=== PATIENT | female | born 1940 | race Caucasian/White ===

== ENCOUNTER 2020-06-06 09:57 | Inpatient (IN) | payer OTHER ==
[~2020-06-06] VITALS: Ht 160 cm; Wt 43.8 kg
[2020-06-06] VITALS (10 sets, daily range): BP systolic 111–136; BP diastolic 57–77
--- NOTE | ~2020-06-06 | EMS ---
[address] [address] EMS Patient Care Report Name: BEE HARO Room #: 201-P [facility] IN M.R.#: [id number] Admission: 06/06/20 Attend Phys: Russ Anguiano MD Discharge: 06/08/20 Date of : 42 Report #: [id number] THIS REPORT FOR: //name// Report Transmitted: 06/26/2020 21:[address] [facility] MED-ACT Incident [id number] @ 06/06/2020 09:11 Incident Location [address] [place] [address] Patient BEE HARO Female, 80 Years 1940 Patient Address [address] [place] [address] Patient History Breast Cancer, Patient Allergies Ibuprofen, Patient Medications None Reported, Chief Complaint STEMI Disposition Transported No Lights/[place] Reason Falls Transported To [facility] Narrative History- Pt is found lying supine on the bed. She is alert and talking to FD. Pt states that her and her went for a 2 mile walk this morning and it was colder outside than she thought it was going to be. When they got back home she went to the kitchen to make a hot tea. Her was in the next room and [address] [address] EMS Patient Care Report Name: BEE HARO Room #: 201-P DIS IN M.R.#: [id number] Admission: 06/06/20 Attend Phys: Russ Anguiano MD Discharge: 06/08/20 Date of : 42 Report #: [id number] heard the pt fall. He immediately went in and by that time the pt was alert but asking repetitive questions. Her helped her to the bed and called 911. Pt's biggest complaint is bilateral wrist pain from the fall. Pt has some slight swelling to both wrist but no deformity. She also has a small abrasion on her left check. Pt denies any head, neck or back pain and pt request to be transported to [facility]. 12 lead is completed and flags a STEMI with slight elevation in II,II,aVF. It is discussed with the pt and her that due to what we see on the 12 lead it would be more appropriate to go to the closest hospital. Pt agrees. Pt denies any chest pain or shortness of breath. Treatment- Vitals. 12 lead. ASA. IV. 12 lead is transmitted to [place]. Pt is transported to [place] with 2 paramedics in the back. Serial 12 lead down with more pronounced ST elevation in II,III,aVF. Pt taken to room 12 and moved to the bed by sheet drag. Report given to RN and . Initial Vitals @09:28P: 62,VA Suspected: true @09:48MI Suspected: true @09:52P: 70,R: 12,BP: 136/61,GCS: 15,SpO2: 100,Revised Trauma: 12, @09:38P: 79,R: 12,BP: 120/78,Pain: 4/10,GCS: 15,SpO2: 99,Revised Trauma: 12, @PTAP: 82,R: 16,BP: 90/50,Pain: 4/10,GCS: 15,Glucose: 71,SpO2: 99,Revised Trauma: 12, Assessments @09:28MENTAL:Person Oriented,Time Oriented,Event Oriented,Place Oriented,SKIN:HEENT:Head/Face: ABR,Eyes: No Abnormalities,Neck/Airway: No Abnormalities,LUNG SOUNDS:General: No Abnormalities,ABDOMEN:General: No Abnormalities,PELVIS//GI:No Abnormalities,EXTREMITIES:Left Arm: Other,Right Arm: Other,Right Arm: WEST,Left Arm: WEST,Left Leg: No Abnormalities,Right Leg: No Abnormalities,PULSE:Radial: 2+ Normal,NEURO:No Abnormalities, Impression ST elevation (STEMI) myocardial infarction of inferior wall Procedures @09:4812-Lead ECGResponse: UnchangedSucceeded@09:2812-Lead ECGResponse: UnchangedSucceeded@09:38Normal Saline (.9% NaCl) 100cc (20 ga) Site: Antecubital-RightResponse: UnchangedSucceeded@09:30Aspirin - 324 Milligrams (mg) - OralResponse: Unchanged@09:30Surgical Mask on PatientResponse: Unchanged@09:30STEMI AlertResponse: Unchanged Timeline [employer] PROFESSOR,BP: 90/50 M,PULSE: 82,RR: 16 R,SPO2: 99 Ox,ETCO2: ,B,PAIN: 4,GCS: 15, 09:09,Call Received 09:09,Psap Call 09:11,Dispatched [address] [address] EMS Patient Care Report Name: BEE HARO Room #: 201-P [facility] IN M.R.#: [id number] Admission: 06/06/20 Attend Phys: Russ Anguiano MD Discharge: 06/08/20 Date of : 42 Report #: [id number] 09:11,En Route 09:21,On Scene 09:22,At Patient 09:28,12-Lead ECG,Response: UnchangedSucceeded, 09:28,BP: / M,PULSE: 62,RR: R,SPO2: Ox,ETCO2: ,BG: ,PAIN: ,GCS: , 09:30,Aspirin - 324 Milligrams (mg) - Oral,Response: Unchanged 09:30,STEMI Alert,Response: Unchanged 09:30,Surgical Mask on Patient,Response: Unchanged 09:38,Normal Saline (.9% NaCl) 100cc 20 ga Site: Antecubital-Right,Response: UnchangedSucceeded, 09:38,BP: 120/78 M,PULSE: 79,RR: 12 R,SPO2: 99 Ox,ETCO2: ,BG: ,PAIN: 4,GCS: 15, 09:41,Depart Scene 09:48,12-Lead ECG,Response: UnchangedSucceeded, 09:48,BP: / M,PULSE: ,RR: R,SPO2: Ox,ETCO2: ,BG: ,PAIN: ,GCS: , 09:52,BP: 136/61 M,PULSE: 70,RR: 12 R,SPO2: 100 Ox,ETCO2: ,BG: ,PAIN: ,GCS: 15, 09:55,At Destination 10:21,Call Closed Disclaimer v1.1 Copyright 2020 [employer] This EMS Care Summary contains data elements from the applicable legal record (which may be displayed differently). It is designed to provide pertinent information for the following purposes: continuity of care, clinical quality, and state data reporting. The complete legal record is available to ED staff and administrators of the receiving hospital in [employer]'s Patient Tracker. All data is provided "as is."
--- NOTE | ~2020-06-06 | EMS ---
[address] [address] EMS Patient Care Report Name: BEE HARO Room #: 170-12 ADM IN M.R.#: [id number] Admission: 06/06/20 Attend Phys: Russ Anguiano MD Discharge: Date of : 42 Report #: [id number] THIS REPORT FOR: //name// Report Transmitted: 06/06/2020 12:07 EMS Care Summary [facility] MED-ACT Incident [id number] @ 06/06/2020 09:11 Incident Location [address] [place] [address] Patient BEE HARO Female, 80 Years 1940 Patient Address [address] [place] [address] Patient History Breast Cancer, Patient Allergies Ibuprofen, Patient Medications None Reported, Chief Complaint STEMI Disposition Transported No Lights/[place] Dispatch Reason Falls Transported To [facility] Narrative History- Pt is found lying supine on the bed. She is alert and talking to FD. Pt states that her and her went for a 2 mile walk this morning and it was colder outside than she thought it was going to be. When they got back home she went to the kitchen to make a hot tea. Her was in the next room and [facility] [address] [place] [address] EMS Patient Care Report Name: BEE HARO Room #: 170-12 ADM IN M.R.#: [id number] Admission: 06/06/20 Attend Phys: Russ Anguiano MD Discharge: Date of : 42 Report #: [id number] heard the pt fall. He immediately went in and by that time the pt was alert but asking repetitive questions. Her helped her to the bed and called 911. Pt's biggest complaint is bilateral wrist pain from the fall. Pt has some slight swelling to both wrist but no deformity. She also has a small abrasion on her left check. Pt denies any head, neck or back pain and pt request to be transported to [facility]. 12 lead is completed and flags a STEMI with slight elevation in II,II,aVF. It is discussed with the pt and her that due to what we see on the 12 lead it would be more appropriate to go to the closest hospital. Pt agrees. Pt denies any chest pain or shortness of breath. Treatment- Vitals. 12 lead. ASA. IV. 12 lead is transmitted to [place]. Pt is transported to [place] with 2 paramedics in the back. Serial 12 lead down with more pronounced ST elevation in II,III,aVF. Pt taken to room 12 and moved to the bed by sheet drag. Report given to RN and . Initial Vitals @09:48MI Suspected: true @09:28P: 62,[place] Suspected: true @09:52P: 70,R: 12,BP: 136/61,GCS: 15,SpO2: 100,Revised Trauma: 12, @09:38P: 79,R: 12,BP: 120/78,Pain: 4/10,GCS: 15,SpO2: 99,Revised Trauma: 12, @PTAP: 82,R: 16,BP: 90/50,Pain: 4/10,GCS: 15,Glucose: 71,SpO2: 99,Revised Trauma: 12, Assessments @09:28MENTAL:Person Oriented,Time Oriented,Event Oriented,Place Oriented,SKIN:HEENT:Head/Face: ABR,Eyes: No Abnormalities,Neck/Airway: No Abnormalities,LUNG SOUNDS:General: No Abnormalities,ABDOMEN:General: No Abnormalities,PELVIS//GI:No Abnormalities,EXTREMITIES:Left Arm: Other,Right Arm: Other,Right Arm: WEST,Left Arm: WEST,Left Leg: No Abnormalities,Right Leg: No Abnormalities,PULSE:Radial: 2+ Normal,NEURO:No Abnormalities, Impression ST elevation (STEMI) myocardial infarction of inferior wall Procedures @09:4812-Lead ECGResponse: UnchangedSucceeded@09:2812-Lead ECGResponse: UnchangedSucceeded@09:38Normal Saline (.9% NaCl) 100cc (20 ga) Site: Antecubital-RightResponse: UnchangedSucceeded@09:30Aspirin - 324 Milligrams (mg) - OralResponse: Unchanged@09:30Surgical Mask on PatientResponse: Unchanged@09:30STEMI AlertResponse: Unchanged 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,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 M,PULSE: 82,RR: 16 R,SPO2: 99 Ox,ETCO2: ,B,PAIN: 4,GCS: 15, 09:09,Call Received 09:09,Psap Call 09:11,Dispatched [address] [address] EMS Patient Care Report Name: BEE HARO Room #: 170-12 ADM IN M.R.#: [id number] Admission: 06/06/20 Attend Phys: Russ Anguiano MD Discharge: Date of : 42 Report #: [id number] 09:11,En Route 09:21,On Scene 09:22,At Patient 09:28,12-Lead ECG,Response: UnchangedSucceeded, 09:28,BP: / M,PULSE: 62,RR: R,SPO2: Ox,ETCO2: ,BG: ,PAIN: ,GCS: , 09:30,Aspirin - 324 Milligrams (mg) - Oral,Response: Unchanged 09:30,STEMI Alert,Response: Unchanged 09:30,Surgical Mask on Patient,Response: Unchanged 09:38,Normal Saline (.9% NaCl) 100cc 20 ga Site: Antecubital-Right,Response: UnchangedSucceeded, 09:38,BP: 120/78 M,PULSE: 79,RR: 12 R,SPO2: 99 Ox,ETCO2: ,BG: ,PAIN: 4,GCS: 15, 09:41,Depart Scene 09:48,12-Lead ECG,Response: UnchangedSucceeded, 09:48,BP: / M,PULSE: ,RR: R,SPO2: Ox,ETCO2: ,BG: ,PAIN: ,GCS: , 09:52,BP: 136/61 M,PULSE: 70,RR: 12 R,SPO2: 100 Ox,ETCO2: ,BG: ,PAIN: ,GCS: 15, 09:55,At Destination 10:21,Call Closed Disclaimer v1.1 Copyright 2020 [employer] This EMS Care Summary contains data elements from the applicable legal record (which may be displayed differently). It is designed to provide pertinent information for the following purposes: continuity of care, clinical quality, and state data reporting. The complete legal record is available to ED staff and administrators of the receiving hospital in [employer]'s Patient Tracker. All data is provided "as is."
--- NOTE | ~2020-06-06 | HC ---
[facility] [place] [address] CONSULTATION Name: BEE HARO Room #: 170-12 ADM IN M.R.#: [id number] Admission: 06/06/20 Attend Phys: Russ Anguiano MD Discharge: Date of : 42 Report #: [id number] THIS REPORT FOR: cc: FAM - No family physician/PCP FAM - No family physician/PCP Jason Dominguez MD ~ CARDIOLOGY CONSULTATION INDICATION: Syncope. HISTORY OF PRESENT ILLNESS: This is a pleasant 80-year-old female with a history of hypothyroidism, breast cancer, presenting with an episode of syncope. She had just gone for her 2-mile walk outside with her . They walk routinely without any issues. This morning, it was cold outside and they walked faster than they normally would. They came home and she went into the kitchen to make tea. She apparently passed out, her heard her fall. When he went to see her, she was moaning and regained consciousness. She kept asking the same questions. The patient does not recall details leading to her syncopal event. She denies any chest pain or shortness of breath. On route to the hospital, an EKG performed by EMS revealed ST segment elevation in the inferior leads. In the ER, repeat ECG revealed no ST segment changes. There is no history of fever, chills, loss of appetite, or diarrhea. PAST MEDICAL HISTORY: Denies any history of hypertension or diabetes. History of breast cancer, thyroid disease. Also with low blood pressure. HOME MEDICATION: Includes Synthroid. ALLERGIES: IBUPROFEN. SOCIAL HISTORY: Denies tobacco use. FAMILY HISTORY: Denies any premature history of CAD. Lives with her . REVIEW OF SYSTEMS: A full 10-point review of systems performed. Only the pertinent positives and negatives are described in the HPI. PHYSICAL EXAMINATION: VITAL SIGNS: Blood pressure is 110/60. Heart rate is 80 beats per minute. GENERAL APPEARANCE: This is an elderly-appearing female, in no acute respiratory distress. HEENT: Normocephalic, atraumatic. Oral mucosa moist. NECK: Supple. LUNGS: Clear to auscultation. CARDIAC: Regular rate and rhythm. S1, S2 positive. [facility] [address] [address] CONSULTATION Name: BEE HARO Room #: 170-12 ADM IN .R.#: [id number] Admission: 06/06/20 Attend Phys: Russ Anguiano MD Discharge: Date of : 42 Report #: [id number] ABDOMEN: Soft, nontender. EXTREMITIES: No cyanosis. No edema. LABORATORY DATA: ECG done by EMS reveals sinus rhythm with ST segment elevation in the inferior leads. EKG #2 done in the ER reveals sinus rhythm, no acute changes. Laboratory values are pending. ASSESSMENT AND PLAN: 1. ECG abnormality, rule out acute coronary syndrome. We will need to rule out acute ST segment elevation that has normalized. May be related to occluded vessel with reperfusion. I discussed with the patient and her the risks, benefits, and alternatives of cardiac catheterization. They understand and wish to proceed. 2. Syncope, may be related to chronic low blood pressure and recent cardiac event. Another consideration may be vagally mediated. 3. Hypercholesterol, check lipid panel and treat accordingly. 4. Thyroid disease, continue with Synthroid. By: [id number] Jason Dominguez MD /nt
--- NOTE | 2020-06-06 10:18 | NUR ---
LEADERSHIP DEVELOPMENT MANAGER HERE TO GET CONSENTS. DR RICKS STATES NOT TO GIVE HEPARIN AT THIS TIME
[2020-06-06 10:22] LABS: HEMATOCRIT 36.9 % (37.0-47.0); HEMOGLOBIN 11.8 gm/dL (12.0-15.0); MCH 25.9 pg (26.0-34.0); MCHC 31.9 g/dL (28.0-37.0); MCV 81.1 fL (80.0-100.0); PLATELET COUNT 287 thou/uL (150-400); RBC 4.55 mil/uL (4.20-5.00); RDW 14.9 % (10.5-14.5); WBC 8.6 thou/uL (4.0-11.0)
--- NOTE | 2020-06-06 10:28 | NUR ---
INTERNATIONAL LOGISTICS MANAGER HERE TO TAKE PATIENT TO THE LAB
[2020-06-06 10:39] LABS: ANION GAP 9 mmol/L (7-16); BUN 14 mg/dL (7-18); CALCIUM 9.3 mg/dL (8.5-10.1); CHLORIDE 102 mmol/L (98-107); CO2 26 mmol/L (21-32); CREATININE 0.8 mg/dL (0.6-1.0); GLUCOSE 117 mg/dL (74-106); SODIUM 137 mmol/L (136-145)
[2020-06-06 10:48] LABS: TROPONIN-I <0.06 ng/mL (<0.06)
[2020-06-06 10:50] LABS: ABSOLUTE NEUTROPHILS 5.9 thou/uL (1.4-8.2); ATYPICAL LYMPHS 1 %; PLATELET ESTIMATE NORMAL
--- NOTE | 2020-06-06 12:38 | NUR ---
SUGARTONG SPLINT APPLIED TO LT ARM FOR FX. FINGERS PINK AND WARM, PT CAN MOVE. CAP REFILL <2 SEC.
--- NOTE | 2020-06-06 12:48 | CATHLAB ---
[facility] [place] [address] INVASIVE PROCEDURE REPORT Name: BEE HARO Room #: 170-12 ADM IN M.R.#: [id number] Admission: 06/06/20 Attend Phys: Russ Anguiano MD Discharge: Date of : 42 Report #: [id number] THIS REPORT FOR: cc: FAM - No family physician/PCP FAM - No family physician/PCP aJson Dominguez MD ~ APPROVED REPORT Study performed: 06/06/2020 10:35:55 Patient Details The patient is a 80 year-old female Event Personnel Jason Dominguez Try Out Person, Hannah Oden RN RN, Estelle Bearden RTR, KALEB Bryson, Georgi Szymanski RTR Monitor Procedures Performed Art Access - R femoral artery* Left Heart Cath w/or w/o Coronaries [id number] [facility] [address] Initial Mod Sed Same Phys/QHP Gr5y 070117 86376 Mod Sed Same Phys/QHP Ea 217192 Hemostasis w/ Mynx Indication Abnormal ECG, Syncope, The patient presented with an episode of syncope at home. ECG performed by EMS revealed ST elevation in the inferior leads. A second ECG performed in the ER revealed no ST segment changes. Risk Factors Hypercholesterolemia Procedure Narrative The Right Groin^ was infiltrated with 1% Lidocaine subcutaneous anesthesia. A PINNACLE 6FR Sheath #[id number] sheath was inserted into the RFA^. Coronary angiography was performed using coronary diagnostic catheters. The right coronary system was accessed and visualized with a JR4 catheter. The left coronary system was accessed and visualized with a JL4 catheter. The left ventricle was accessed and visualized with a PIGTAIL catheter. Left ventricular/Aortic Valve gradient assessed via catheter pullback. Left ventriculogram was performed in 30 degree projection. Pre-demployment femoral angiogram was performed . Closure device was deployed with a 6 Fr MYNXGRIP 6/7F #[id number]. Hemostasis was obtained with manual pressure following [facility] [place] [address] INVASIVE PROCEDURE REPORT Name: TAHIRBEE Room #: 170-12 [facility] IN ..#: [id number] Admission: 06/06/20 Attend Phys: Elia Monge Discharge: Date of : 42 Report #: [id number] sheath removal without any complications. The patient tolerated the procedure well and there were no complications associated with the procedure. There was no hematoma. Intraoperative Conscious Sedation Sedation start time: 1057 Case end Time: 1130 Fentanyl 50 mcg Versed 1 mg Fluoro Time: 3.20 minutes Dose: DAP 1498.00 cGycm2 402 mGy Contrast Type and Amount: Visipaque 105 ml Coronary Angiography The patient's coronary anatomy is right dominant. Diagnostic Cath Left Main Left main artery is a large-caliber vessel, with no flow-limiting lesions. LAD The LAD is a moderate-sized caliber vessel, traversing the anterior wall and wrapping around the apex. This vessel is patent with no flow-limiting lesions. Diagonal 1 This is a small to moderate-sized caliber vessel, patent with no flow-limiting lesions. Circumflex There is a mild stenosis in the proximal circumflex, 10%. OM1 This is a small to moderate-sized caliber vessel, patent with no flow-limiting lesions. Right Coronary The RCA is a dominant vessel with mild disease proximally. R PDA This is a small to moderate-sized caliber vessel, patent with no flow-limiting lesions. RPLV This is a small to moderate-sized caliber vessel, patent with no flow-limiting lesions. Left Ventriculography The left ventricle is normal in size with normal contractility. The left ventricular ejection fraction is estimated to be 55-60%. Hemodynamics The aortic pressure is 108/49 mmHg with a mean of 74 mmHg. The left ventricular pressure is 105/6 mmHg with a mean of mmHg. The left ventricular end diastolic pressure is 15 mmHg. Conclusion [facility] [address] [place] [address] INVASIVE PROCEDURE REPORT Name: BEE HARO Room #: [facility]12 [facility] IN .R.#: [id number] Admission: 06/06/20 Attend Phys: Elia Monge Discharge: Date of : 42 Report #: [id number] 1. 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 2. There is normal LV systolic function. 3. Recommend guideline directed medical therapy. <ELECTRONICALLY SIGNED> By: Jasno Dominguez MD 06/06/20 1248 47 Jason Dominguez MD /INF
--- NOTE | 2020-06-06 14:45 | NUR ---
13:45 ARRIVED FROM ATLASSIAN ADMINISTRATOR ON OUR UNIT. RIGHT GROIN SITE LOOKS CLEAN, DRY AND INTACT WITH NO OOZING OR BLEEDING FROM SITE AT ALL. PALPATION OF AREA IS SOFT TO TOUCH AND NO SIGN'S OF A HEMATOMA AT SITE. PEDALPULSES ARE STRONG BILATERALLY. DENIES ANY SOB, NO CHEST PAIN AT THIS TIME. ASKED ABOUT CLOTHING=WILL CALL ATLASSIAN ADMINISTRATOR AND ER TO LOCATE SUCH FROM LAST NIGHT. DR. GRADY IS COMING UP TO WRITE ORDERS SOON. ON VITAL SIGN MONITOR AND ALL WITHIN NORMAL LIMITS. AT BEDSIDE ASKING IF SHE WILL HAVE SURGERY FOR HER ARM SOON I TOLD HER THEY WOULD NEED TO EVALUATE HER/ORTHO AND MAKE THAT DECISION BUT FOR NOW THEY WILL FOCUS ON WHY SHE HAD A SYNCOPAL EPISODE.
--- NOTE | 2020-06-06 15:58 | EKG ---
[facility] [place] [address] ELECTROCARDIOGRAM REPORT Name: BEE HARO Room #: 201-P ADM IN M.R.#: [id number] Admission: 06/06/20 Attend Phys: Russ Anguiano MD Discharge: Date of : 42 Report #: [id number] THIS REPORT FOR: cc: RYAN - Nikki family physician/PCP RYAN - Nikki family physician/PCP Caleb Fox MD 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
--- NOTE | 2020-06-06 17:19 | NUR ---
PT. BACK FROM CT SCAN OF HEAD. IS OFF BEDREST NOW. BEDPAN PROVIDED URINE OUTPUT WAS 500ML, NO VOIDING DIFFICULTIES REPORTED. DENIES AND DISCOMFORT OTHER THEN HER LEFT ARM WITH MOVEMENT ONLY AT THIS TIME. RIGHT HAND IS PUFFY NEAR THE THUMB AREA SO WILL PASS THIS ALONG IT MAY ALSO NEED AN XRAY WELL AND AN ICE PACK. RIGHT GROIN IS C,D,I NO HEMATOMA, NO OOZING AT SITE.
--- NOTE | 2020-06-06 17:46 | NUR ---
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 THEY BROUGHT UP HER CLOTHES, SHOES AND CELL PHONE. DENIES AND SOB, NO CP.
[2020-06-06] MEDS ORDERED: SYNTHROID50 MCG (19:46)
[2020-06-07] VITALS (7 sets, daily range): BP systolic 108–128; BP diastolic 56–74
--- NOTE | 2020-06-07 03:00 | NUR ---
ASSESSMENTS CHARTED, MEDS CHARTED GIVEN. PATIENT RESTING IN BED DURING SHIFT. SHE CAME IN AFTER A SYNCOPAL EPISODE WHEN SHE FRACTURED HER RIGHT WRIST. CURRENTLY BEING WORKED UP FOR ORTHO SURGERY TO REPAIR DISPLACED ULNER STYLOID AND DISTAL RADIUS. DENIED PAIN UNTIL AROUND MIDNIGHT WHEN THE PAIN BECAME EXCRUCIATING. BRUISE AND SWELLING TO RIGHT HAND. FALL PRECAUTIONS IN PLACE DURING SHIFT.
[2020-06-07 05:26] LABS: HEMATOCRIT 36.2 % (37.0-47.0); HEMOGLOBIN 11.7 gm/dL (12.0-15.0); MCH 25.9 pg (26.0-34.0); MCHC 32.5 g/dL (28.0-37.0); MCV 79.9 fL (80.0-100.0); RBC 4.52 mil/uL (4.20-5.00); RDW 14.6 % (10.5-14.5); WBC 10.8 thou/uL (4.0-11.0)
[2020-06-07 05:43] LABS: CALCIUM 8.9 mg/dL (8.5-10.1); CREATININE 0.7 mg/dL (0.6-1.0); POTASSIUM 4.1 mmol/L (3.5-5.1)
--- NOTE | 2020-06-07 08:03 | NUR ---
ASSUMED CARE OF PT AT SHIFT CHANGE, A&0X4, AMB W/SBA FOR SAFETY D/T ADMISSION DX AND FX L ULNAR/RAD. NOTED ONLY ONE CONSULT, DR. RICKS. REC INFO DURING REPORT PT WAS HEADED TO SURGERY THIS A.M. NO ORTHO CONSULT WAS ENTERED THIS A.M. FILLED OUT SHEET, ADDED INTERVENTION FOR SPOUSE TO VISIT. PT ONLY WORRIED ABOUT GETTING ANY LYMPHADEMA AFTER SURGERY W/HX OF L BREAST CANCER AND LYMPH NODE REMOVAL. SEE SEPARATE INTERVENTIONS FOR ASSESSMENTS. ENCOURAGED PT TO USE CALL LIGHT FOR ANY NEEDS
[2020-06-07 08:50] LABS: CHOLESTEROL 205 mg/dL (<200); HDL CHOLESTEROL 58 mg/dL (>40); LDL CHOLESTEROL 131 mg/dL (<100); TC:HDL 3.5 Ratio (Not establshd); TRIGLYCERIDE 81 mg/dL (<150); VLDL 16 mg/dL (<40)
[2020-06-07 08:54] LABS: PROTIME 10.7 Seconds (9.3-11.4)
--- NOTE | 2020-06-07 10:11 | 2DMMODE ---
[facility] [place] [address] 2 D/M-MODE ECHOCARDIOGRAM Name: BEE HARO Room #: 201-P ADM IN M.R.#: [id number] Admission: 06/06/20 Attend Phys: Russ Anguiano MD Discharge: Date of : 44 Report #: [id number] THIS REPORT FOR: cc: FAM - No family physician/PCP FAM - No family physician/PCP Jason Dominguez MD ~ APPROVED REPORT Study performed: 06/07/2020 08:26:11 EXAM: Comprehensive 2D, Doppler, and color-flow Echocardiogram Patient Location: Bedside Room #: 201 Status: routine BSA: 1.42 HR: 82 bpm BP: 115/59 mmHg Rhythm: NSR Other Information Study Quality: Good Indications Syncope 2D Dimensions RVDd: 25.27 mm IVSd: 6.87 (7-11mm) LVOT Diam: 18.94 (18-24mm) LVDd: 32.20 mm PWd: 7.07 (7-11mm) Ascending Ao: 25.48 (22-36mm) LVDs: 17.12 (25-40mm) Aortic Root: 24.02 mm IVC: 15.00 mm Volumes Left Atrial Volume (Systole) Single Plane 4CH: 27.03 mL Single Plane 2CH: 14.60 mL LA ESV Index: 16.00 mL/m2 Aortic Valve AoV Peak Matthieu.: 1.22 m/s AO Peak Gr.: 5.99 mmHg LVOT Max P.02 mmHg LVOT Max V: 1.00 m/s JUAN LUIS Vmax: 2.31 cm2 [facility] [address] [place] [address] 2 D/M-MODE ECHOCARDIOGRAM Name: BEE HARO Room #: 201-P [facility] IN .R.#: [id number] Admission: 06/06/20 Attend Phys: Elia Monge Discharge: Date of : 44 Report #: [id number] Mitral Valve E/A Ratio: 1.1 MV Decel. Time: 212.53 ms MV E Max Matthieu.: 0.71 m/s MV A Matthieu.: 0.62 m/s MV PHT: 61.63 ms IVRT: 110.73 ms Pulmonary Valve PV Peak Matthieu.: 0.59 m/s PV Peak Gr.: 1.37 mmHg Pulmonary Vein P Vein S: 0.52 m/s P Vein A: 0.32 m/s P Vein D: 0.30 m/s P Vein A Dur.: 120.0 msec P Vein S/D Ratio: 1.73 Left Ventricle The left ventricle is normal size. There is normal LV segmental wall motion. There is normal left ventricular wall thickness. Left ventricular systolic function is normal. The left ventricular ejection fraction is within the normal range. LVEF is 60-65%. Grade II - pseudonormal filling dynamics. Right Ventricle The right ventricle is normal size. The right ventricular systolic function is normal. Atria The left atrium size is normal. The right atrium size is normal. Aortic Valve The Aortic valve is sclerotic. No aortic regurgitation is present. There is no aortic valvular stenosis. Mitral Valve The mitral valve is normal in structure. There is no mitral valve regurgitation noted. No evidence of mitral valve stenosis. Tricuspid Valve The tricuspid valve is normal in structure. There is no tricuspid valve regurgitation noted. Pulmonic Valve The pulmonary valve is normal in structure. There is no pulmonic valvular regurgitation. [facility] [place] [address] 2 D/M-MODE ECHOCARDIOGRAM Name: BEE HARO Room #: 201-P ADM IN M.R.#: [id number] Admission: 06/06/20 Attend Phys: Elia Monge Discharge: Date of : 44 Report #: [id number] Great Vessels The aortic root is normal in size. IVC is normal in size and collapses >50% with inspiration. Pericardium There is no pericardial effusion. <Conclusion> The left ventricle is normal size. There is normal left ventricular wall thickness. Left ventricular systolic function is normal. Grade II - pseudonormal filling dynamics. The right ventricle is normal size. The left atrium size is normal. The Aortic valve is sclerotic. There is no mitral valve regurgitation noted. <ELECTRONICALLY SIGNED> By: Jason Dominguez MD 06/07/20 101 10 10 Jason Dominguez MD /INF
--- NOTE | 2020-06-07 12:25 | NUR ---
Met with patient who admits post fall at home sustaining left arm fracture. Patients spouse at bedside. patient and spouse reside in [facility]. She can remain on main level if needed. She has children in area who are supportive and able to assist. She reports she just went on 3mile walk. She returned home and was making tea when she fell. spouse reports did not see her fall but at home when happened. [employer] independent with adls and self care. No hx of dme or rehab. Patient very active and independent. Spouse at bedside able to assist. Patient has health insurance and prescription benefits. PCP Dr Rodríguez Mays from . [facility] following. Anticipate no dc needs.
--- NOTE | 2020-06-07 15:25 | NUR ---
PRE TOILETING BVI: 320ML AFTER TOILETING ML: 0
[2020-06-08] VITALS (9 sets, daily range): BP systolic 98–120; BP diastolic 56–68
--- NOTE | 2020-06-08 05:15 | NUR ---
PATIENT SLEPT MOST OF THE NIGHT AND STATED THAT SHE GOT A GOOD NIGHT REST. ASSISTED UP TO THE BATHROOM X1, TURNS SELF WITHOUT PROBLEMS, KEEPS ARMS ELEVATED, PATIENT WITHOUT COMPLAINTS OF PAIN OR SOA, WORKING ON GOALS AND PLAN OF CARE FOR NIGHT. PROGRESSING SLOWLY TO DISCHARGE GOALS. CONTINUE TO ASSESS ACCORDING TO CARE PLAN
[2020-06-08] MEDS ORDERED: MIDODRINE HCL2.5 M1 PO (15:53)
--- NOTE | 2020-06-12 12:03 | EEG ---
[facility] [place] [address] ELECTROENCEPHALOGRAM Name: BEE HARO Room #: 201-P [facility] IN M.R.#: [id number] Admission: 06/06/20 Attend Phys: Russ Anguiano MD Discharge: 06/08/20 Date of : 44 Report #: [id number] THIS REPORT FOR: //name// CC: Russ Anguiano [facility] physician/PCP DATE OF SERVICE: 06/08/2020 This patient is being evaluated for an episode of syncope. EEG is being done to evaluate the possibility of seizure. EEG was done by placing the electrode by standard 10-20 system of electrode placement. Both referential and sequential montages were used for recording. Background activity in this patient's EEG is about 9 Hz and 30 microvolts. There is a symmetrical activity. The patient went to sleep that is associated with bilaterally symmetrical sleep spindle and vertex sharp waves. Throughout the record, no active epileptiform activity was noticed. IMPRESSION: This patient's EEG is within normal limits. Thank you very much for this referral. <ELECTRONICALLY SIGNED> By: Salvador Garrett MD 06/12/20 1203 1138 [id number] Salvador Garrett MD /nt
--- NOTE | 2020-06-12 12:04 | HC ---
[facility] [place] [address] [place] [address] CONSULTATION Name: BEE HARO Room #: 201-P [facility] IN M.R.#: [id number] Admission: 06/06/20 Attend Phys: Russ Anguiano MD Discharge: 06/08/20 Date of : 44 Report #: [id number] THIS REPORT FOR: cc: RYAN - No family physician/PCP FAM - No family physician/PCP Salvador Garrett MD ~ DATE OF SERVICE: 06/07/2020 HISTORY OF PRESENT ILLNESS: This is a 80-year-old female patient who was evaluated by me to determine any neurological etiology for the patient's episode of syncope. The patient is an avid walker. She walks several miles a day. She has been doing it for a long time. She walked 3 miles and came home. She basically passed out. The was there, but he did not see the episode. He saw the episode only when she fell. She broke 2 bones and she never had this kind of episode before. She did have some headache and some tenderness, but overall she feels back to her baseline except her left arm and the left scalp is tender to some extent. REVIEW OF SYSTEMS: Indicate that she is pretty healthy. The only medication she takes is thyroid. She is a pretty avid walker. Cardiac catheterization has been mostly unremarkable. She has been seen by Cardiology. She is not complaining of any eye, ENT, cardiac, respiratory, GI, , constitutional, dermatological, hematological, psychiatric, throat or allergic symptom associated with present symptomatology. She does have musculoskeletal symptoms where she has pain in the left arm, left shoulder and somewhat going towards the neck area. FAMILY HISTORY: Unremarkable. SOCIAL HISTORY: She does not smoke or drink any alcohol. PHYSICAL EXAMINATION: Indicate she is alert. She is responsive. She can follow simple and complex command. Her memory, fund of knowledge is at her baseline. Cranial nerve examination 2-12 does not appear to be showing any definite abnormality. Neuromuscular examination does not show any abnormality as checked for motor, sensory, and reflexes. Both the plantars are mute. There is no cerebellar sign in this patient. The left arm was not examined during the neuromuscular examination, but she can move her fingers. There is no meningeal sign. I could not look at the patient's fundus. She is nicely built individual who does not have any dysmorphic features of eyes, ears and face. Her vision and hearing appeared noncontributory. She has no edema, cyanosis or jaundice. Blood pressure is 128/74, respiration is 14, pulse is 81, temperature is 98. LABORATORY DATA: White count is 10.8. Sodium is 135, which [place] [address] CONSULTATION Name: BEE HARO Room #: 201-P DIS IN M.R.#: [id number] Admission: 06/06/20 Attend Phys: Russ Anguiano MD Discharge: 06/08/20 Date of : 44 Report #: [id number] did have an MRI of the brain, which does not show any abnormality of the brain. It does show a scalp hematoma, which I confirmed on clinical examination. She has some bruises on the face also. CT demonstrates similar finding. IMPRESSION: It is not clear what this episode of syncope was, but it was a profound episode leading to fracture. There was no witness. So I do not get any history that it can be seizures. She did have some pain after that and tenderness and even now have it and headache what she had may have been secondary to just scalp hematoma she has, but I think it will be desirable to make sure she does not have any aneurysm or transmitted trauma to the neck. I will also get an EEG done. I do not think this was a neurological event, but if above workup is negative that will exclude it even further and I ordered that. If that workup is negative from neurological perspective, she can be dismissed and the emphasis should be to workup and manage any systemic causes for her problem. Thank you very much for this referral. <ELECTRONICALLY SIGNED> By: Salvador Garrett MD 06/12/20 1204 1520 [id number] Salvador Garrett MD /nt
== END 2020-06-08 16:57 | disposition home or self-care (01) | DRG 281 ==
LOC: ER 09:57 → 2N 10:27 → EROBS 10:27 → 2N 11:38
PROVIDERS: Emergency Medicine; Internal Medicine; Internal Medicine Cardiovascular Disease; Nurse Practitioner; ADMIT Hospitalist; ATTEND Hospitalist
PROC: 4A023N7 Measurement of Cardiac Sampling and Pressure, Left Heart, Percutaneous Approach (ICD-10-PCS; principal; 2020-06-06)
PROC: B41FYZZ Fluoroscopy of Right Lower Extremity Arteries using Other Contrast (ICD-10-PCS; principal; 2020-06-06)
PROC: B215YZZ Fluoroscopy of Left Heart using Other Contrast (ICD-10-PCS; principal; 2020-06-06)
PROC: B211YZZ Fluoroscopy of Multiple Coronary Arteries using Other Contrast (ICD-10-PCS; principal; 2020-06-06)
DX: I21.3 ST elevation (STEMI) myocardial infarction of unspecified site (principal); S52.512A Displaced fracture of left radial styloid process, initial encounter for closed fracture; S52.612A Displaced fracture of left ulna styloid process, initial encounter for closed fracture; E78.00 Pure hypercholesterolemia, unspecified; E07.9 Disorder of thyroid, unspecified; E03.9 Hypothyroidism, unspecified; M19.031 Primary osteoarthritis, right wrist; I95.1 Orthostatic hypotension; M81.0 Age-related osteoporosis without current pathological fracture; S00.03XA Contusion of scalp, initial encounter; Z88.6 Allergy status to analgesic agent; Z85.3 Personal history of malignant neoplasm of breast; W18.39XA Other fall on same level, initial encounter; Y93.89 Activity, other specified; Y92.89 Other specified places as the place of occurrence of the external cause; Y99.8 Other external cause status
CPT/HCPCS: 10081